=== PATIENT | male | born 1960 | race Two or more races ===

== ENCOUNTER 2019-12-25 07:41 | Outpatient (CLI) | payer OTHER | END 2019-12-25 07:47 | disposition home or self-care (01) | LOC: LAB 07:41 | PROVIDERS: ATTEND General Practice | DX: N39.0 Urinary tract infection, site not specified (principal); D64.89 Other specified anemias; E03.8 Other specified hypothyroidism; E78.49 Other hyperlipidemia; E11.9 Type 2 diabetes mellitus without complications; I10 Essential (primary) hypertension; D49.59 Neoplasm of unspecified behavior of other genitourinary organ; M81.0 Age-related osteoporosis without current pathological fracture; Z12.11 Encounter for screening for malignant neoplasm of colon; N40.0 Benign prostatic hyperplasia without lower urinary tract symptoms ==

== ENCOUNTER 2020-02-05 07:43 | Outpatient (CLI) | payer OTHER | END 2020-02-05 07:50 | disposition home or self-care (01) | LOC: LAB 07:43 | PROVIDERS: ATTEND Urology | DX: R97.20 Elevated prostate specific antigen [PSA] (principal) ==

== ENCOUNTER 2020-04-06 08:52 | Outpatient (CLI) | payer OTHER | END 2020-04-06 09:05 | disposition home or self-care (01) | LOC: LAB 08:52 | DX: I11.9 Hypertensive heart disease without heart failure (principal); E11.65 Type 2 diabetes mellitus with hyperglycemia; E11.69 Type 2 diabetes mellitus with other specified complication; Z13.29 Encounter for screening for other suspected endocrine disorder; Z12.11 Encounter for screening for malignant neoplasm of colon; E03.8 Other specified hypothyroidism ==

== ENCOUNTER → 2021-01-05 11:10 | Outpatient (CLI) | payer OTHER | END | disposition home or self-care (01) | LOC: LAB 11:10 | PROVIDERS: ATTEND Urology | DX: E78.49 Other hyperlipidemia (principal); Z12.5 Encounter for screening for malignant neoplasm of prostate; E11.65 Type 2 diabetes mellitus with hyperglycemia ==

== ENCOUNTER 2021-04-04 08:13 | Outpatient (CLI) | payer OTHER | END 2021-04-04 08:20 | disposition home or self-care (01) | LOC: NUCLEAR 08:13 | PROVIDERS: ATTEND Surgery | DX: I11.9 Hypertensive heart disease without heart failure (principal); I36.1 Nonrheumatic tricuspid (valve) insufficiency ==

== ENCOUNTER 2021-08-11 08:44 | Outpatient (CLI) | payer OTHER | END 2021-08-11 08:58 | disposition home or self-care (01) | LOC: TOM 08:44 | PROVIDERS: ATTEND Otolaryngology | DX: J32.8 Other chronic sinusitis (principal) ==

== ENCOUNTER 2021-08-28 10:12 | Outpatient (CLI) | payer OTHER | END 2021-08-28 10:28 | disposition home or self-care (01) | LOC: LAB 10:12 | DX: N40.0 Benign prostatic hyperplasia without lower urinary tract symptoms (principal); Z12.5 Encounter for screening for malignant neoplasm of prostate ==

== ENCOUNTER 2021-12-12 08:41 | Outpatient (CLI) | payer OTHER | END 2021-12-12 08:43 | disposition home or self-care (01) | LOC: LAB 08:41 | PROVIDERS: ATTEND Urology | DX: I11.9 Hypertensive heart disease without heart failure (principal); E11.65 Type 2 diabetes mellitus with hyperglycemia; E11.69 Type 2 diabetes mellitus with other specified complication; E78.5 Hyperlipidemia, unspecified; Z12.5 Encounter for screening for malignant neoplasm of prostate; E11.40 Type 2 diabetes mellitus with diabetic neuropathy, unspecified; N40.0 Benign prostatic hyperplasia without lower urinary tract symptoms ==

== ENCOUNTER 2022-07-18 09:45 | Outpatient (CLI) | payer OTHER | END 2022-07-18 09:49 | disposition home or self-care (01) | LOC: LAB 09:45 | PROVIDERS: ATTEND Internal Medicine Cardiovascular Disease | DX: I11.9 Hypertensive heart disease without heart failure (principal); R06.09 Other forms of dyspnea; R42 Dizziness and giddiness; R07.89 Other chest pain; R09.89 Other specified symptoms and signs involving the circulatory and respiratory systems; E78.00 Pure hypercholesterolemia, unspecified; E11.9 Type 2 diabetes mellitus without complications; E03.9 Hypothyroidism, unspecified ==

== ENCOUNTER 2022-11-03 08:28 | Outpatient (CLI) | payer OTHER | END 2022-11-03 08:32 | disposition home or self-care (01) | LOC: LAB 08:28 | DX: C61 Malignant neoplasm of prostate (principal); N40.0 Benign prostatic hyperplasia without lower urinary tract symptoms ==

== ENCOUNTER 2023-04-17 07:49 | Outpatient (CLI) | payer OTHER ==
[2023-04-17 08:33] LABS: HEMATOCRIT 39.3 % (39.0-48.0); HEMOGLOBIN 13.5 g/dL (13-16.00); MEAN CELL VOLUME 86.6 fL (80.0-100.00); MEAN CORPUSCULAR HEMOGLOBIN 29.6 pg (27.00-32.0); MEAN CORPUSCULAR HGB CONC 34.2 g/dl (32.0-36.0); PLATELET COUNT 216 K/uL (150-450); RED BLOOD COUNT 4.54 M/uL (4.00-6.00); RED CELL DISTRIBUTION WIDTH 14.6 % (11.5-14.5)
== END 2023-04-17 07:50 | disposition home or self-care (01) ==
LOC: LAB 07:49
DX: N40.0 Benign prostatic hyperplasia without lower urinary tract symptoms (principal)

== ENCOUNTER → 2023-08-22 07:51 | Outpatient (CLI) | payer OTHER ==
[2023-08-22 08:57] LABS: URINE APPEARANCE Clear; URINE BILIRRUBIN Negative (NEGATIVE); URINE BLOOD Negative; URINE COLOR Yellow; URINE GLUCOSE Negative (NEGATIVE); URINE LEUKOCYTE Trace; URINE NITRATE Negative; URINE PROTEIN Negative (NEGATIVE)
[2023-08-22 08:58] LABS: URINE BACTERIA 6.2 uL (0.0-1933); URINE EPITHELIAL CELLS 1.5 uL (0.0-38.8); URINE WBC 4.1 uL (0.0-23.2)
[2023-08-22 09:00] LABS: HEMATOCRIT 40.3 % (39.0-48.0); HEMOGLOBIN 13.8 g/dL (13-16.00); MEAN CELL VOLUME 87.5 fL (80.0-100.00); MEAN CORPUSCULAR HGB CONC 34.3 g/dl (32.0-36.0); PLATELET COUNT 219 K/uL (150-450); RED BLOOD COUNT 4.61 M/uL (4.00-6.00); RED CELL DISTRIBUTION WIDTH 14.3 % (11.5-14.5)
[2023-08-22 09:18] LABS: INR 0.96; PARTIAL THROMBOPLASTIN TIME 28.3 SECONDS (22.0-34.0); PROTHROMBIN TIME 10.1 SECONDS (9.0-11.5)
[2023-08-22 09:23] LABS: ALBUMIN 3.8 gm/dL (3.4-5.0); BILIRUBIN TOTAL 0.66 mg/dL (0.3-1.2); CALCIUM 9.5 mg/dL (8.5-10.1); CREATININE SERUM 0.9 mg/dL (0.70-1.30); GFR 85.5; GLOBULINA 2.7 G/DL (2.4-3.5); POTASSIUM 3.76 mEq/L (3.5-5.1); TOTAL PROTEIN 6.5 gm/dL (6.4-8.2)
[2023-08-22 10:03] LABS: RH POSITIVE
== END | disposition home or self-care (01) ==
LOC: LAB 07:51
PROVIDERS: ATTEND Urology
DX: C61 Malignant neoplasm of prostate (principal)

== ENCOUNTER → 2023-09-25 07:56 | Outpatient (CLI) | payer OTHER ==
[2023-09-25 09:45] LABS: CALCIUM 9.6 mg/dL (8.5-10.1); CREATININE SERUM 1.05 mg/dL (0.70-1.30); GFR 71.57; POTASSIUM 3.99 mEq/L (3.5-5.1)
[2023-09-25 09:47] LABS: PROSTATIC SPECIFIC ANTIGEN 5.58 NG/ML (0.010-4.00)
== END | disposition home or self-care (01) ==
LOC: LAB 07:56
DX: R97.20 Elevated prostate specific antigen [PSA] (principal)

== ENCOUNTER → 2023-12-17 07:31 | Outpatient (CLI) | payer OTHER ==
[2023-12-17 08:10] LABS: PH,URINE 5.5 (5.0-8.0); URINE APPEARANCE Clear; URINE BILIRRUBIN Negative (NEGATIVE); URINE BLOOD Negative; URINE COLOR Dark Yellow; URINE GLUCOSE Negative (NEGATIVE); URINE LEUKOCYTE Negative; URINE NITRATE Negative; URINE PROTEIN Negative (NEGATIVE)
[2023-12-17 08:11] LABS: URINE BACTERIA 114.6 uL (0.0-1933); URINE EPITHELIAL CELLS 8.3 uL (0.0-38.8); URINE RBC 4.8 uL (0.0-20.8); URINE WBC 4.3 uL (0.0-23.2)
== END | disposition home or self-care (01) ==
LOC: LAB 07:31
PROVIDERS: ATTEND Urology
DX: N39.0 Urinary tract infection, site not specified (principal)

== ENCOUNTER 2024-02-15 10:01 | Outpatient (CLI) | payer OTHER ==
[2024-02-15 10:44] LABS: HEMATOCRIT 40.1 % (39.0-48.0); HEMOGLOBIN 13.7 g/dL (13-16.00); MEAN CELL VOLUME 88.5 fL (80.0-100.00); MEAN CORPUSCULAR HEMOGLOBIN 30.1 pg (27.00-32.0); PLATELET COUNT 150 K/uL (150-450); RED BLOOD COUNT 4.54 M/uL (4.00-6.00); RED CELL DISTRIBUTION WIDTH 13.7 % (11.5-14.5)
[2024-02-15 13:55] LABS: MYCOPLASMA PNEUMONIAE IGM NON REACTIVE (NO REACTIVE)
[2024-02-16] MEDS ORDERED: BENICAR HCT 201 EACH PO (09:09)
[2024-02-16] MEDS ORDERED: GLUMETZA500 MG PO (09:12)
[2024-02-16] MEDS ORDERED: NASAL MIST126 ML (09:13)
== END 2024-02-15 10:07 | disposition home or self-care (01) ==
LOC: LAB 10:01
PROVIDERS: ATTEND Family Medicine
DX: R50.9 Fever, unspecified (principal); A49.3 Mycoplasma infection, unspecified site; J11.1 Influenza due to unidentified influenza virus with other respiratory manifestations; Z20.822 Contact with and (suspected) exposure to COVID-19

== ENCOUNTER 2024-02-16 08:43 | Emergency (ER) | payer OTHER ==
[~2024-02-16] VITALS: Ht 182.9 cm; Wt 93.0 kg
[2024-02-16] MEDS ORDERED: BENICAR HCT 201 EACH PO (09:09)
[2024-02-16] MEDS ORDERED: GLUMETZA500 MG PO (09:12)
[2024-02-16] MEDS ORDERED: NASAL MIST126 ML (09:13)
[2024-02-16 11:00] LABS: HEMATOCRIT 40.6 % (39.0-48.0); MEAN CELL VOLUME 86.4 fL (80.0-100.00); MEAN CORPUSCULAR HEMOGLOBIN 29.8 pg (27.00-32.0); MEAN CORPUSCULAR HGB CONC 34.5 g/dl (32.0-36.0); PLATELET COUNT 142 K/uL (150-450); RED CELL DISTRIBUTION WIDTH 13.5 % (11.5-14.5)
[2024-02-16] MEDS ORDERED: 0.9 % SODIUM CHLORIDE 500 ML IV STA (12:29)
== END 2024-02-16 16:07 | disposition home or self-care (01) ==
LOC: ER 08:43
DX: B34.9 Viral infection, unspecified (principal); Z85.46 Personal history of malignant neoplasm of prostate; Z20.822 Contact with and (suspected) exposure to COVID-19

== ENCOUNTER 2024-07-13 09:54 | Outpatient (CLI) | payer OTHER ==
[~2024-07-13 09:54] MED LIST: BENICAR HCT 201 EACH PO; GLUMETZA500 MG PO; NASAL MIST126 ML
== END 2024-07-13 09:58 | disposition home or self-care (01) ==
LOC: RAD 09:54
DX: M25.511 Pain in right shoulder (principal)

== ENCOUNTER 2024-09-21 10:51 | Outpatient (CLI) | payer OTHER | END 2024-09-21 10:56 | disposition home or self-care (01) | LOC: SONOGRAMA 10:51 | PROVIDERS: ATTEND Specialist | DX: M65.811 Other synovitis and tenosynovitis, right shoulder (principal); M54.2 Cervicalgia; M47.812 Spondylosis without myelopathy or radiculopathy, cervical region ==

== ENCOUNTER 2025-01-11 08:33 | Outpatient (CLI) | payer OTHER ==
[2025-01-11 09:16] LABS: BASO % 0.7 % (0.1-1.2); EOS # 0.14 (0.04-0.54); EOS % 3.4 % (0.7-7.0); LYMPH # 1.20 (1.18-3.74); LYMPH % 29.6 % (19.3-53.1); MEAN PLATELET VOLUME 8.80 fl (9.4-12.4); MONO # 0.33 (0.24-0.82); MONO % 8.1 % (4.7-12.5); NEUT # 2.35 (1.56-6.13); NEUT % 58.0 % (34.0-71.1); RED CELL DISTRIBUTION WIDTH 13.1 % (11.6-14.4)
[2025-01-11 09:20] LABS: URINE APPEARANCE Clear; URINE BILIRRUBIN Negative (NEGATIVE); URINE BLOOD Negative; URINE COLOR Yellow; URINE GLUCOSE Negative (NEGATIVE); URINE KETONE Trace (NEGATIVE); URINE LEUKOCYTE Negative; URINE NITRATE Negative; URINE PROTEIN Negative (NEGATIVE); URINE UROBILINOGEN 1.0 E.U./dl
[2025-01-11 09:25] LABS: URINE BACTERIA 22.7 uL (0.0-1933); URINE EPITHELIAL CELLS 1.6 uL (0.0-38.8); URINE RBC 2.6 uL (0.0-20.8); URINE WBC 1.8 uL (0.0-23.2)
[2025-01-11 09:39] LABS: URINE CAST 0.14 uL (0.0-1.40)
[2025-01-11 10:37] LABS: ALT/SGPT 21.0 U/L (12-78); AST/SGOT 14.0 U/L (15-37); BILIRUBIN TOTAL 0.64 mg/dL (0.3-1.2); BUN CREA RATIO 15.0 (7.0-25.0); CHOL HDL RATIO 3.4 (0-5.0); CREATININE SERUM 1.13 mg/dL (0.70-1.30); GFR 65.33; GLOBULINA 3.0 G/DL (2.4-3.5); GLUCOSE FASTING 98.0 mg/dL (65-100); HDL 49.0 mg/dl (40-60); LDL 88.0 mg/dl (0-130); OSMOLALITY SERUM 286.0 MOSM/KG (275-295); TSH 1.95 uIU/mL (0.358-3.74); VLDL 28.0 (0-39)
== END 2025-01-11 08:36 | disposition home or self-care (01) ==
LOC: LAB 08:33
DX: E55.9 Vitamin D deficiency, unspecified (principal); E78.2 Mixed hyperlipidemia; E11.22 Type 2 diabetes mellitus with diabetic chronic kidney disease; E03.9 Hypothyroidism, unspecified; R10.9 Unspecified abdominal pain; D50.9 Iron deficiency anemia, unspecified; B34.9 Viral infection, unspecified; N39.0 Urinary tract infection, site not specified; E11.65 Type 2 diabetes mellitus with hyperglycemia

== ENCOUNTER 2025-03-03 07:10 | Outpatient (CLI) | payer OTHER | END 2025-03-03 07:11 | disposition home or self-care (01) | LOC: NUCLEAR 07:10 | DX: R10.13 Epigastric pain (principal); R14.0 Abdominal distension (gaseous) ==

== ENCOUNTER 2025-04-26 09:13 | Outpatient (CLI) | payer OTHER ==
[2025-04-26 10:17] LABS: BASO % 0.6 % (0.1-1.2); EOS # 0.21 (0.04-0.54); EOS % 4.1 % (0.7-7.0); LYMPH # 1.09 (1.18-3.74); LYMPH % 21.4 % (19.3-53.1); MEAN PLATELET VOLUME 8.70 fl (9.4-12.4); MONO # 0.40 (0.24-0.82); MONO % 7.9 % (4.7-12.5); NEUT # 3.35 (1.56-6.13); NEUT % 65.8 % (34.0-71.1); RED CELL DISTRIBUTION WIDTH 13.1 % (11.6-14.4)
[2025-04-26 10:20] LABS: URINE APPEARANCE Clear; URINE BILIRRUBIN Negative (NEGATIVE); URINE BLOOD Negative; URINE COLOR Yellow; URINE GLUCOSE Negative (NEGATIVE); URINE KETONE Trace (NEGATIVE); URINE LEUKOCYTE Negative; URINE NITRATE Negative; URINE PROTEIN Negative (NEGATIVE); URINE UROBILINOGEN 0.2 E.U./dl
[2025-04-26 10:24] LABS: URINE BACTERIA 6.0 uL (0.0-1933); URINE EPITHELIAL CELLS 3.0 uL (0.0-38.8); URINE RBC 4.8 uL (0.0-20.8); URINE WBC 3.8 uL (0.0-23.2)
[2025-04-26 10:30] LABS: URINE CAST 0.00 uL (0.0-1.40)
[2025-04-26 11:53] LABS: ALT/SGPT 39 U/L (12-78); AST/SGOT 21 U/L (15-37); BILIRUBIN TOTAL 0.50 mg/dL (0.3-1.2); BUN CREA RATIO 17 (7.0-25.0); CHOL HDL RATIO 3.9 (0-5.0); CREATININE SERUM 1.24 mg/dL (0.70-1.30); GFR 58.69; GLOBULINA 3.0 G/DL (2.4-3.5); GLUCOSE FASTING 92 mg/dL (65-100); HDL 47 mg/dl (40-60); LDL 106 mg/dl (0-130); OSMOLALITY SERUM 288 MOSM/KG (275-295); VLDL 27 (0-39)
[2025-04-26 11:55] LABS: PROSTATIC SPECIFIC ANTIGEN < 0.010 NG/ML (0.010-4.00)
== END 2025-04-26 09:14 | disposition home or self-care (01) ==
LOC: LAB 09:13
DX: N40.0 Benign prostatic hyperplasia without lower urinary tract symptoms (principal); E78.2 Mixed hyperlipidemia; Z12.11 Encounter for screening for malignant neoplasm of colon; E11.610 Type 2 diabetes mellitus with diabetic neuropathic arthropathy; R10.9 Unspecified abdominal pain; E11.9 Type 2 diabetes mellitus without complications; D50.9 Iron deficiency anemia, unspecified; B34.9 Viral infection, unspecified; N39.0 Urinary tract infection, site not specified

== ENCOUNTER → 2025-04-29 08:52 | Outpatient (CLI) | payer OTHER ==
[2025-04-29 09:19] LABS: ob NEGATIVE (NEGATIVE)
== END | disposition home or self-care (01) ==
LOC: LAB 08:52
DX: Z12.11 Encounter for screening for malignant neoplasm of colon (principal)

== ENCOUNTER 2025-05-26 07:58 | Outpatient (CLI) | payer OTHER | END 2025-05-26 08:15 | disposition home or self-care (01) | LOC: MRI 07:58 | DX: R25.8 Other abnormal involuntary movements (principal) | CPT/HCPCS: 70553 ==